=== PATIENT | male | born 1995 | race Caucasian/White ===

== ENCOUNTER 2018-04-11 13:53 | Emergency (ER) | payer SELFPAY ==
[~2018-04-11] VITALS: Ht 165.1 cm; Wt 81.2 kg
--- NOTE | 2018-04-11 14:42 | NUR ---
Patient discharged to home in stable conditon. Written and verbal after care instructions given. Patient verbalizes understanding of instructions.
== END 2018-04-11 14:42 | disposition home or self-care (01) ==
LOC: ER 13:53
DX: N45.1 Epididymitis (principal); N43.3 Hydrocele, unspecified
CPT/HCPCS: 76870; 99284; A4663